=== PATIENT | male | born 1980 | race Caucasian/White ===

== ENCOUNTER 2017-07-29 13:43 | Emergency (ER) | payer OTHER ==
[2017-07-29 13:44] VITALS: BP 159/102; PULSE 80; RESP 12; TEMP 98; O2SAT 99
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
[2017-07-29 15:15] VITALS: BP 140/76; RESP 16
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
[2017-07-29] MEDS ORDERED: IBUP1TAB7 PO (15:37)
[2017-07-29] MEDS ORDERED: KETOROLAC TROMETHAMINE 60 MG/2 ML (IM) VIAL IM ONE (15:45)
== END 2017-07-29 15:51 | disposition home or self-care (01) ==
LOC: NEPA 13:43
DX: M75.101 Unspecified rotator cuff tear or rupture of right shoulder, not specified as traumatic (principal); G56.03 Carpal tunnel syndrome, bilateral upper limbs; Z72.0 Tobacco use
CPT/HCPCS: 73030; 96372; 99283; J1885